=== PATIENT | female | born 1960 | race African-American/Black ===

== ENCOUNTER 2017-04-06 08:04 | Outpatient (CLI) | payer BC | END 2017-04-06 08:05 | disposition home or self-care (01) | LOC: BICULT 08:04 | PROVIDERS: ATTEND Otolaryngology Plastic Surgery within the Head & Neck | DX: E04.2 Nontoxic multinodular goiter (principal) | CPT/HCPCS: 76536 ==

== ENCOUNTER 2020-08-26 14:18 | Outpatient (CLI) | payer BC | END 2020-08-26 14:19 | disposition home or self-care (01) | LOC: BICULT 14:18 | PROVIDERS: ATTEND Otolaryngology Plastic Surgery within the Head & Neck | DX: E04.1 Nontoxic single thyroid nodule (principal) | CPT/HCPCS: 76536 ==